=== PATIENT | male | born 1980 | race African-American/Black ===

== ENCOUNTER 2019-08-06 15:08 | Emergency (ER) | payer SELFPAY ==
[~2019-08-06] VITALS: Ht 165.1 cm; Wt 77.3 kg
[2019-08-06] MEDS ORDERED: ACETAMINOPHEN 500 MG TABLET PO ONE (15:45)
[2019-08-06 16:42] VITALS: BP 152/97
== END 2019-08-06 16:59 | disposition home or self-care (01) ==
LOC: EMS 15:08
DX: M79.18 Myalgia, other site (principal)